=== PATIENT | male | born 1955 | race Caucasian/White ===

== ENCOUNTER 2017-10-01 10:51 | Emergency (ER) | payer OTHER ==
[~2017-10-01] VITALS: Ht 170.2 cm; Wt 77.1 kg
[2017-10-01] MEDS ORDERED: PROZAC40 MG PO (11:04)
[2017-10-01] MEDS ORDERED: LISINOPRIL10 MG PO (11:05)
[2017-10-01] MEDS ORDERED: XANAX1 MG PO (11:05)
[2017-10-01] MEDS ORDERED: LISINOPRIL-HCT1 EAC2 PO (11:05)
[2017-10-01] MEDS ORDERED: NORCO 5-325 TA1 EACH PO (12:40)
[2017-10-01] MEDS ORDERED: IBUPROFEN 600600 M1 PO (12:40)
[2017-10-01 13:15] VITALS: BP 124/76
== END 2017-10-01 13:16 | disposition home or self-care (01) ==
LOC: ER 10:51
DX: S82.61XA Displaced fracture of lateral malleolus of right fibula, initial encounter for closed fracture (principal); Z88.0 Allergy status to penicillin; W22.8XXA Striking against or struck by other objects, initial encounter; Y93.89 Activity, other specified; Y92.89 Other specified places as the place of occurrence of the external cause; Y99.8 Other external cause status